=== PATIENT | female | born 1970 | race Caucasian/White ===

== ENCOUNTER → 2023-08-19 | Outpatient (CLI) | payer MEDICARE, MEDICAID ==
[~2023-08-19] MED LIST: ALPRAZOLAM; AMOXICILLIN 8751 TAB PO; ATARAX50 MG PO; ATIVAN 1MG T1 MG/TAB PO; Albuterol 0.083% Neb Soln 2.5 MG/3 ML UD IH ONE; CYMBALTA 60MG60 MG PO; DEPAKOTE ER 50500 MG PO; DEPAKOTE500 MG PO; DILANTIN; FOLIC ACID 11 MG/TA1 PO; K-DUR20 MEQ PO; KEPPRA PO; MELATONIN5 M1 SL; MOTRIN 600600 MG/TAB PO; Methacholine Vial A (Clear Label Base-Cntrl) IH ONE; Methacholine Vial B (Red Label) 0.0625 MG/ML 3 ML VIAL.NEB IH ONE; Methacholine Vial C (Orange Label) 0.25 MG/ML 3 ML VIAL.NEB IH ONE; Methacholine Vial D (Yellow Label) 1 MG/ML 3 ML VIAL.NEB IH ONE; Methacholine Vial E (Green Label) 4 MG/ML 3 ML VIAL.NEB IH ONE; NEURONTIN600 MG/TAB PO; NORCO 325 MG-51 TAB PO; PERCOCET 325 MG1 TA2 PO; PRINIVIL10 MG PO
== END ==
LOC: COL.CARD 09:57
DX: R06.02 Shortness of breath (principal); F17.210 Nicotine dependence, cigarettes, uncomplicated
CPT/HCPCS: J7674